=== PATIENT | female | born 1980 | race Two or more races ===

== ENCOUNTER 2023-01-11 22:03 | Emergency (ER) | payer OTHER ==
[~2023-01-11] VITALS: Ht 162.6 cm; Wt 72.0 kg
[2023-01-12] MEDS ORDERED: KETOROLAC TROMETH 30 MG/ML 1ML VIAL IM ONE (01:15)
[2023-01-12] MEDS ORDERED: CYCL-837 PO (01:32)
[2023-01-12 02:00] VITALS: BP 136/95; PULSE 84; RESP 16; TEMP 98.9; O2SAT 98
== END 2023-01-12 02:30 | disposition home or self-care (01) ==
LOC: ER 22:09
DX: S09.90XA Unspecified injury of head, initial encounter (principal); W20.8XXA Other cause of strike by thrown, projected or falling object, initial encounter; Y93.89 Activity, other specified; Y92.89 Other specified places as the place of occurrence of the external cause; Y99.8 Other external cause status
CPT/HCPCS: 96372; 99283; J1885